=== PATIENT | female | born 1985 | race Caucasian/White ===

== ENCOUNTER → 2022-03-11 | Outpatient (CLI) | payer OTHER ==
[~2022-03-11] MED LIST: IOPAMIDOL 370 MG/ML 100 ML INFUS..BTL INJ ONE
== END ==
LOC: CT 09:47
PROVIDERS: ATTEND Internal Medicine
DX: Z00.00 Encounter for general adult medical examination without abnormal findings (principal); R07.9 Chest pain, unspecified
CPT/HCPCS: 71260; Q9967